=== PATIENT | male | born 1960 | race Hispanic/Latino ===

== ENCOUNTER → 2018-02-02 | Day surgery (SDC) | payer OTHER ==
[~2018-02-02] MED LIST: BUPIVACAINE 0.5%/EPI 30 ML SDV INJ ONE; CEFAZOLIN SOD 2 GM/D5W 50ML 50 ML IV ONE; CORAL COMPLEX PO; DEXAMETHASONE SOD PHOS INJ 4 MG/ML VIAL ONE; FENTANYL CITRATE/PF 100MCG/2 ML INJ ONE; KETOROLAC TROMETHAMINE 30 MG/ML VIAL ONE; LIDOCAINE HCL 2% LOCAL INJ 5 ML SDV VIAL INJ ONE; MIDAZOLAM HCL 2 MG/2 ML VIAL ONE; ONDANSETRON HCL INJ 2 MG/ML VIAL ONE; PROPOFOL IV EMULSION 10 MG/ML 20 ML VIAL ONE; SEVOFLURANE INHAL SOLN 250 ML PEN BTL ONE; [UNRECOGNIZED DRUG - OTHER] PO
--- NOTE | 2018-02-05 10:13 | Operative Report ---
DATE OF PROCEDURE: February 02, 2018 PREOPERATIVE DIAGNOSIS: 1. Right knee medial meniscus tear. 2. 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 POSTOPERATIVE DIAGNOSIS: 1. Right knee medial meniscus tear. 2. 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 OPERATION/PROCEDURE PERFORMED: 1. Right knee examination under anesthesia. 2. Right knee arthroscopy. 3. Right knee partial medial meniscectomy. 4. Right knee chondroplasty of patella, trochlea, medial femoral condyle, medial tibial plateau, lateral femoral condyle and lateral tibial plateau. FURNITURE REPAIR TECHNICIAN: None. ANESTHESIA: General endotracheal intubation anesthesia. IV FLUIDS: Per the anesthesia record. BRIEF DESCRIPTION OF THE PATIENT'S OPERATIVE PROCEDURE: Mr. Najera was taken to the operating room and placed in supine position on the operating table. Following induction of general anesthesia as well as endotracheal intubation, the patient's right lower extremity was examined under anesthesia. He was found to have a mild effusion within the knee joint but an otherwise ligamentously stable knee. Patient's lower extremity was prepped and draped in standard surgical fashion. A 2 portal technique was used to provide this patient arthroscopic evaluation of the knee joint. Examination of the suprapatellar pouch, medial and lateral gutters found no evidence of loose bodies. There was, however, evidence of chondromalacia of the patellar and trochlear surfaces. Scope was advanced and the medial compartment examined and the medial compartment demonstrated a torn medial meniscus. There was also chondromalacia of the articulating surfaces. A combination of biting forceps and motorized shaver were used to resect the torn portion of the meniscus. Chondroplasties of the medial femoral condyle and medial tibial plateau were performed at this time. Scope was advanced into the intercondylar notch and anterior cruciate ligament was identified and found to be intact. Scope was then advanced in lateral compartment and chondroplasties of the lateral femoral condyle and lateral tibial plateau were performed at this time. Scope was then placed into the suprapatellar pouch and chondroplasties of the patella and trochlea were performed. The knee was then deflated of its sterile normal saline. The portal sites were closed using 4-0 nylon suture. The portal sites as well as the knee itself were then injected with half percent Marcaine with epinephrine. Sterile dressings were applied and the patient was awakened and taken to post anesthesia care unit in stable condition. Job#: [id number]
== END | disposition home or self-care (01) ==
LOC: OR 08:08
PROVIDERS: ATTEND Specialist
DX: S83.221A Peripheral tear of medial meniscus, current injury, right knee, initial encounter (principal); M17.11 Unilateral primary osteoarthritis, right knee; M22.41 Chondromalacia patellae, right knee; M70.51 Other bursitis of knee, right knee; X58.XXXA Exposure to other specified factors, initial encounter; Z01.810 Encounter for preprocedural cardiovascular examination
CPT/HCPCS: 29881; 93005; J1100; J1885; J2001; J2250; J2405

== ENCOUNTER 2018-03-11 07:00 | Outpatient (RCR) | payer OTHER ==
[~2018-03-11 07:00] MED LIST changes: -BUPIVACAINE 0.5%/EPI 30 ML SDV INJ ONE; -CEFAZOLIN SOD 2 GM/D5W 50ML 50 ML IV ONE; -DEXAMETHASONE SOD PHOS INJ 4 MG/ML VIAL ONE; -FENTANYL CITRATE/PF 100MCG/2 ML INJ ONE; -KETOROLAC TROMETHAMINE 30 MG/ML VIAL ONE; -LIDOCAINE HCL 2% LOCAL INJ 5 ML SDV VIAL INJ ONE; -MIDAZOLAM HCL 2 MG/2 ML VIAL ONE; -ONDANSETRON HCL INJ 2 MG/ML VIAL ONE; -PROPOFOL IV EMULSION 10 MG/ML 20 ML VIAL ONE; -SEVOFLURANE INHAL SOLN 250 ML PEN BTL ONE
== END 2018-03-12 ==
LOC: PT 07:00
PROVIDERS: ATTEND Specialist
DX: M24.661 Ankylosis, right knee (principal); M25.561 Pain in right knee; M25.661 Stiffness of right knee, not elsewhere classified; M62.81 Muscle weakness (generalized); R26.2 Difficulty in walking, not elsewhere classified

== ENCOUNTER 2018-04-11 07:00 | Outpatient (RCR) | payer OTHER | END 2018-04-12 | LOC: PT 07:00 | PROVIDERS: ATTEND Specialist | DX: M24.661 Ankylosis, right knee (principal); M25.561 Pain in right knee; M25.661 Stiffness of right knee, not elsewhere classified; M62.81 Muscle weakness (generalized); R26.2 Difficulty in walking, not elsewhere classified ==

== ENCOUNTER 2018-04-15 10:28 | Outpatient (RCR) | payer OTHER | END 2018-05-13 | LOC: PT 10:28 | PROVIDERS: ATTEND Specialist | DX: M24.661 Ankylosis, right knee (principal); M25.561 Pain in right knee; M25.661 Stiffness of right knee, not elsewhere classified; R26.2 Difficulty in walking, not elsewhere classified; M62.81 Muscle weakness (generalized) ==

== ENCOUNTER 2025-04-18 10:47 | Inpatient (IN) | payer OTHER ==
[2025-04-16 16:10] LABS: BASOPHILS % 0.6 % (0.0-1.0); EOSINOPHILS % 4.5 % (0.0-6.0); LYMPHOCYTES % 43.8 % (18.0-39.1); MONOCYTES % 7.6 % (4.4-11.3); NEUTROPHILS % 43.5 % (38.7-80.0); RED CELL DISTRIBUTION WIDTH 11.9 % (11.7-14.4)
[2025-04-16 16:44] LABS: EST GLOMERULAR FILTRATION RATE 101.0 ML/MIN (>=60)
[~2025-04-18] VITALS: Ht 175.3 cm; Wt 74.4 kg
[~2025-04-18 10:47] MED LIST changes: +ALFUZOSIN HCL10 MG PO; +ATORVASTATIN CA10 MG PO; +CEPHALEXIN500 MG PO; +CIALIS5 MG PO; +FINASTERIDE5 MG PO; +FLOMAX0.4 MG PO; +KEFLEX125 MG/5 M PO; +METFORMIN HCL500 M2 PO; +PANTOPRAZOLE SO40 MG PO
[2025-04-18] MEDS: SODIUM CHLORIDE 0.9% 1000ML 1,000 ML ONE (11:45)
[2025-04-18] MEDS: CEFTRIAXONE 1 GM VIAL ONE (11:45)
[2025-04-18] MEDS: GENTAMICIN 80MG/NS 100 ML 200 ML IV ONE (11:46)
[2025-04-18] MEDS ORDERED: LIDOCAINE HCL 2% LOCAL INJ 5 ML SDV VIAL INJ ONE (13:12)
[2025-04-18] MEDS ORDERED: FENTANYL CITRATE/PF 100MCG/2 ML INJ ONE (13:12)
[2025-04-18] MEDS ORDERED: MIDAZOLAM HCL 2 MG/2 ML VIAL ONE (13:12)
[2025-04-18] MEDS ORDERED: SEVOFLURANE INHAL SOLN 250 ML PEN BTL ONE (13:13)
[2025-04-18] MEDS ORDERED: ACETAMINOPHEN 1000 MG/100 ML 100 ML IV ONE (13:13)
[2025-04-18] MEDS ORDERED: PROPOFOL IV EMULSION 10 MG/ML 20 ML VIAL ONE (13:13)
[2025-04-18] MEDS ORDERED: DEXAMETHASONE SOD PHOS INJ 4 MG/ML SDV ONE (13:31)
[2025-04-18] MEDS ORDERED: ONDANSETRON HCL INJ 2MG/ML 2ML 2 MG/ML VIAL ONE (13:31)
[2025-04-18] MEDS ORDERED: ACETAMINOPHEN 1000 MG/100 ML IV PRN (13:45)
[2025-04-18] MEDS ORDERED: DIPHENHYDRAMINE HCL 25 MG CAP PO PRN (13:45)
[2025-04-18] MEDS ORDERED: ONDANSETRON HCL INJ 2MG/ML 2ML 2 MG/ML VIAL IV PRN (13:45)
[2025-04-18] MEDS ORDERED: EPHEDRINE SULFATE INJ 50 MG/ML VIAL ONE (13:46)
[2025-04-18 15:12] LABS: BASOPHILS % 0.3 % (0.0-1.0); EOSINOPHILS % 2.5 % (0.0-6.0); LYMPHOCYTES % 41.0 % (18.0-39.1); MONOCYTES % 5.0 % (4.4-11.3); NEUTROPHILS % 50.9 % (38.7-80.0); RED CELL DISTRIBUTION WIDTH 11.9 % (11.7-14.4)
[2025-04-18 15:30] LABS: EST GLOMERULAR FILTRATION RATE 103.0 ML/MIN (>=60)
[2025-04-18 16:00] VITALS: BP 128/83; PULSE 63; RESP 17; TEMP 97.6; O2SAT 99
[2025-04-18 16:30] VITALS: BP 128/83; PULSE 63; RESP 17; RESP 18; TEMP 97.6; TEMP 98.2; O2SAT 99
[2025-04-18] MEDS: SENNA-S TABLET PO SCH (17:05)
[2025-04-18] MEDS: SODIUM CHLORIDE 0.9% 1000ML 1,000 ML IV SCH (17:06)
[2025-04-18 20:00] VITALS: BP 126/81; PULSE 71; RESP 18; TEMP 97.3; O2SAT 100
[2025-04-18 20:10] VITALS: PULSE 70; RESP 16; O2SAT 98
[2025-04-19] VITALS (11 sets, daily range): BP systolic 104–120; BP diastolic 68–74; PULSE 52–75; RESP 12–20; TEMP 97.9–98.4; O2SAT 94–100
[2025-04-19 05:37] LABS: BASOPHILS % 0.1 % (0.0-1.0); EOSINOPHILS % 0.2 % (0.0-6.0); LYMPHOCYTES % 20.0 % (18.0-39.1); MONOCYTES % 5.3 % (4.4-11.3); NEUTROPHILS % 74.2 % (38.7-80.0); RED CELL DISTRIBUTION WIDTH 11.9 % (11.7-14.4)
[2025-04-19 06:13] LABS: EST GLOMERULAR FILTRATION RATE 104.0 ML/MIN (>=60)
[2025-04-20] VITALS (7 sets, daily range): BP systolic 110–140; BP diastolic 75–80; PULSE 50–68; RESP 16–20; TEMP 97.4–98.3; O2SAT 96–99
[2025-04-20 05:50] LABS: BASOPHILS % 0.4 % (0.0-1.0); EOSINOPHILS % 2.0 % (0.0-6.0); LYMPHOCYTES % 42.6 % (18.0-39.1); MONOCYTES % 5.0 % (4.4-11.3); NEUTROPHILS % 49.9 % (38.7-80.0); RED CELL DISTRIBUTION WIDTH 12.2 % (11.7-14.4)
[2025-04-20 06:30] LABS: EST GLOMERULAR FILTRATION RATE 100.0 ML/MIN (>=60)
[2025-04-20] MEDS: ACETAMINOPHEN/CODEINE 300MG - 30MG TAB PO PRN (09:08)
[2025-04-20] MEDS: PHENAZOPYRIDINE HCL 100 MG TAB PO PRN (09:08)
== END 2025-04-20 19:20 | disposition home or self-care (01) | DRG 713 ==
LOC: OR 10:47 → PACU V 13:41 → MED/SURG2 16:06
PROVIDERS: ADMIT Family Medicine; ATTEND Family Medicine
PROC: 0T7D8ZZ Dilation of Urethra, Via Natural or Artificial Opening Endoscopic (ICD-10-PCS; 2025-04-18)
PROC: BT141ZZ Fluoroscopy of Kidneys, Ureters and Bladder using Low Osmolar Contrast (ICD-10-PCS; 2025-04-18)
PROC: BT1B1ZZ Fluoroscopy of Bladder and Urethra using Low Osmolar Contrast (ICD-10-PCS; 2025-04-18)
PROC: 0V508ZZ Destruction of Prostate, Via Natural or Artificial Opening Endoscopic (ICD-10-PCS; principal; 2025-04-18 13:25)
DX: N40.1 Benign prostatic hyperplasia with lower urinary tract symptoms (principal); N13.8 Other obstructive and reflux uropathy; R39.14 Feeling of incomplete bladder emptying; N35.919 Unspecified urethral stricture, male, unspecified site; N32.3 Diverticulum of bladder; N32.89 Other specified disorders of bladder; R31.9 Hematuria, unspecified; E78.5 Hyperlipidemia, unspecified; E11.9 Type 2 diabetes mellitus without complications; K21.00 Gastro-esophageal reflux disease with esophagitis, without bleeding; E66.9 Obesity, unspecified; Z79.84 Long term (current) use of oral hypoglycemic drugs
CPT/HCPCS: 36415; 74420; 80048; 82948; 83735; 85025; 88305; 93005; 94799; C1758; J0696; J1100; J1580; J2003; J2250; J2405; J7030

== ENCOUNTER → 2025-05-18 | Outpatient (REF) | payer OTHER | LOC: RAD 09:36 | PROVIDERS: ATTEND Urology | DX: M54.50 Low back pain, unspecified (principal) | CPT/HCPCS: 72110; 72220 ==